=== PATIENT | female | born 1970 | race Caucasian/White ===

== ENCOUNTER → 2023-07-27 08:07 | Outpatient (REF) | payer SELFPAY | LOC: HWRAD 08:07 | PROVIDERS: ATTENDING PHYSICIAN Physician Assistant Medical | DX: E78.2 Mixed hyperlipidemia (principal); R73.02 Impaired glucose tolerance (oral); Z82.49 Family history of ischemic heart disease and other diseases of the circulatory system | CPT/HCPCS: 75571 ==

== ENCOUNTER → 2023-10-01 14:35 | Outpatient (REF) | payer BC, SELFPAY | LOC: HWWDC 14:35 | PROVIDERS: ATTENDING PHYSICIAN Obstetrics & Gynecology Gynecology; FAMILY PHYSICIAN Physician Assistant Medical | DX: Z12.31 Encounter for screening mammogram for malignant neoplasm of breast (principal) | CPT/HCPCS: 77063; 77067 ==

== ENCOUNTER 2023-12-05 14:44 | Emergency (ER) | payer BC, SELFPAY ==
[2023-12-05 14:50] VITALS: BP 137/96
[2023-12-05 15:29] LABS: % Basophils 0.8 % (0-2); % Eosinophils 1.3 % (0-6); % Immature Granulocytes 0.6 % (0-0.5); % Lymphocytes 26.9 % (20.5-51.1); % Monocytes 7.4 % (1.7-9.3); Absolute Basophils 0.1 10^3/uL (0-0.2); Absolute Eosinophils 0.1 10^3/uL (0-0.7); Absolute Immature Granulocytes 0.1 10^3/uL (0-0.05); Absolute Lymphocytes 2.8 10^3/uL (1.2-3.4); Absolute Monocytes 0.8 10^3/uL (0.1-0.6); Absolute Neutrophils 6.5 10^3/uL (1.4-6.5); Hematocrit 38.9 % (37.0-47.0); Hemoglobin 13.5 g/dL (12.0-16.0); Mean Corp Hgb Conc. 34.7 g/dL (33.0-37.0); Mean Corpuscular Hgb 29.9 pg (27.0-31.0); Mean Corpuscular Volume 86.1 fL (81.0-99.0); Mean Platelet Volume 10.3 fL (7.4-10.4); Nucleated Red Blood Cells % 0 %; Platelet Count 307 10^3/uL (130-400); Red Blood Cell Count 4.52 10^6/uL (4.20-5.40); Red Cell Dist. Width 13.4 % (11.5-14.5); White Blood Cell Count 10.3 10^3/uL (4.8-10.8)
[2023-12-05 15:41] LABS: ALT (SGPT) 16 U/L (0-35); AST (SGOT) 21 U/L (14-36); Albumin 4.5 g/dl (3.5-5.0); Alkaline Phosphatase 81 U/L (38-126); Blood Urea Nitrogen 13 mg/dl (7-17); Calcium 9.6 mg/dl (8.4-10.2); Carbon Dioxide 24 mmol/L (22-30); Chloride 104 mmol/L (98-107); Glucose 115 mg/dl (70-99); Potassium 4.1 mmol/L (3.5-5.1); Sodium 137 mmol/L (135-145); Total Bilirubin 0.5 mg/dl (0.2-1.3); eGFR > 60.00
[2023-12-05 16:00] VITALS: BP 116/88
--- NOTE | 2023-12-05 17:38 | ED.GENMED ---
History of Present Illness
General
Chief Complaint: Visual Problem
Source: patient
Time Seen by Provider: 12/05/23 17:25
History of Present Illness
History of Present Illness:
53yoF with no significant past medical history presenting for evaluation of a visual problem. Patient was reading on her computer this morning around 9am this morning when her vision started to feel like she was looking through a kaleidoscope. She
states her vision seemed to appear pixelated in her right lower vision. This lasted about 10 minutes before completely resolving. She denies any floaters, visual field cuts, blurred vision, or double vision. She developed a mild headache after
this but is otherwise asymptomatic. She denies any dizziness, weakness, paresthesias. Patient called her PCP today who advised her to go to the ED for evaluation. Patient is not currently on any medications and denies any tobacco use.
Phy Exam
General Physical Exam
General Presentation: well appearing and no apparent distress
General age: appears stated age
General Skin: warm and dry
General Habitus: normal
Eye Exam
Eye Exam: PERRL, EOMI, conjunctiva normal and visual hallman normal
Neurological Exam
Neurological Exam: alert, CN II-XII intact, no motor deficits, no sensory deficits and other (CN 2-12 intact. PERRL. EOMs intact. Visual hallman normal. Negative drift x4. Normal finger to nose and heel to scherer bilaterally. Normal finger to nose and
heel to scherer bilaterally. )
NIH Stroke Score
Level of Consciousness: 0 - Alert
LOC questions: 0-Answers both correctly
LOC Commands: 0-Performs both correctly
Best Gaze: 0-Normal
Visual Hallman: 0=Normal, no visual loss
Facial palsy: 0=Normal, symmetrical
Motor - Right Arm: 0=No drift 10 seconds
Motor - Left Arm: 0=No drift 10 seconds
Motor - Right Le-No drift 5 seconds
Motor - Left Le-No drift 5 seconds
Limb Ataxia: 0-Absent
Sensation: 0-Normal
Best Language: 0-No aphasia
Dysarthria: 0-Normal
Extinction and Inattention: 0-No abnormality
Total Score:: 0
Skin Exam
Skin Exam: normal color and warm/dry
Psychiatric Exam
Psychiatric Exam: normal mood/affect
Course
Orders/Labs/Results
Orders:
Orders
12/05/23 14:57
CT Head W/o Iv Contrast Urgent
Comment:
Reason For Exam: R sided colidoscope vision lasting 5-10min this AM
12/05/23 15:08
CBC/With Diff [Complete Blood Count/With Diff] Urgent
CMP [Comprehensive Metabolic Panel] Urgent
Abnormal Lab Results
12/05/23
15:08
Abs Immat Gran (auto) 0.1 H 10^3/uL
(0-0.05)
Absolute Monos (auto) 0.8 H 10^3/uL
(0.1-0.6)
Immature Gran % 0.6 H %
(0-0.5)
Creatinine 0.5 L mg/dL
(0.6-1.0)
Glucose 115 H mg/dl
(70-99)
12/05/23 15:08
12/05/23 15:08
Vital Signs
Initial and Last Documented VS:
Initial Vital Signs
Temp Pulse Resp BP Pulse Ox
98.1 F 84 18 137/96 98
12/05/23 14:50 12/05/23 14:50 12/05/23 14:50 12/05/23 14:50 12/05/23 14:50
Last Documented Vital Signs
Temp Pulse Resp BP Pulse Ox
98.2 F 77 16 116/88 98
12/05/23 16:00 12/05/23 16:00 12/05/23 18:12 12/05/23 16:00 12/05/23 16:00
MDM/Problems Addressed
Differential Diagnosis Includes:
53yoF here with transient visual symptoms this morning. Describes as pixelated vision x 10 minutes. No visual field cut or double vision reported. Currently asymptomatic other than a mild headache. She has no known CVA risk factors. Neurologic
exam is nonfocal and visual hallman are normal. NIHSS 0. She is afebrile and hemodynamically stable. Differential diagnosis includes but is not limited to: TIA, CVA, complex migraine, nonspecific visual symptoms
Labs and CT head obtained in triage. CT is negative for acute findings. Given that symptoms have completely resolved and she denies any visual field cuts, do not feel that further workup is needed in the emergency department. Low suspicion of
acute CVA. She was advised to follow-up closely with her PCP, eye doctor, and neurology. Strict ED return precautions discussed including any new visual or neurologic symptoms. Patient is in agreement with plan. She was discharged in stable
condition.
*Critical Care Note
Total Time (30-74mins, 75-104mins- exclusive of procedures): Not Applicable
ED Attending Note
-
Portions of this chart may have been created with voice recognition software.� Occasional wrong word or��sound alike� substitutions may have occurred due to the inherent limitations of voice recognition software.
Discharge Plan
Departure
Patient Disposition: Home (Routine Discharge)
Date of Disposition: 12/05/23
Time of Disposition: 18:05
Patient with high blood pressure during this ER visit?: No
Discharge Problem:
Transient vision disturbance, bilateral
Instructions: Double Vision
Referrals:
Cole Alcocer MD [Active] -
Debi Hernandez PA-C [Family Provider] -
Activity Restrictions/Additional Instructions:
Please call tomorrow to schedule a follow-up with your family doctor, neurology, and your eye doctor. Return to the ER immediately with any new neurologic or visual symptoms.
Interventions
Interventions:
*Risk Screen - Suicide Last Done: 12/05/23 14:50
*General Assessment Last Done: 12/05/23 14:50
*Neglect/Abuse Screening Last Done: 12/05/23 14:50
*Nursing Disposition Last Done: 12/05/23 18:11
ED-EENT Assessment Last Done: 12/05/23 17:08
ED- Neurological Assessment Last Done: 12/05/23 17:08
Discharge Date and Time
Discharge Date/Time: 12/05/23 18:11
Print Language: NIUEAN
== END 2023-12-05 18:11 | disposition home or self-care (01) ==
LOC: EMR 14:44
PROVIDERS: Emergency Medicine; EMERGENCY PHYSICIAN Student in an Organized Health Care Education/Training Program; FAMILY PHYSICIAN Physician Assistant Medical
DX: H53.8 Other visual disturbances (principal)
CPT/HCPCS: 99284; 70450; 80053; 85025

== ENCOUNTER → 2024-04-30 12:50 | Outpatient (REF) | payer BC, SELFPAY | LOC: HWRAD 12:50 | PROVIDERS: ATTENDING PHYSICIAN Obstetrics & Gynecology Gynecology; FAMILY PHYSICIAN Physician Assistant Medical | DX: N93.9 Abnormal uterine and vaginal bleeding, unspecified (principal) | CPT/HCPCS: 76830; 76856 ==

== ENCOUNTER → 2024-10-23 09:11 | Outpatient (REF) | payer BC, SELFPAY | LOC: HWWDC 09:11 | PROVIDERS: ATTENDING PHYSICIAN Obstetrics & Gynecology Gynecology; FAMILY PHYSICIAN Physician Assistant Medical | DX: Z12.31 Encounter for screening mammogram for malignant neoplasm of breast (principal) | CPT/HCPCS: 77063; 77067 ==

== ENCOUNTER → 2024-11-07 09:27 | Outpatient (REF) | payer BC, SELFPAY | LOC: WDC 09:27 | PROVIDERS: ATTENDING PHYSICIAN Obstetrics & Gynecology Gynecology; FAMILY PHYSICIAN Physician Assistant Medical | DX: R92.8 Other abnormal and inconclusive findings on diagnostic imaging of breast (principal) | CPT/HCPCS: 76642 ==